=== PATIENT | female | born 1985 | race Caucasian/White ===

== ENCOUNTER 2017-02-21 17:54 | Observation (INO) | payer BC ==
[2017-02-21] MEDS ORDERED: Lactated Ringers 1,000 ML IV ONE (18:09)
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
[2017-02-21] MEDS ORDERED: Lactated Ringers 1,000 ML IV SCH (19:15)
[2017-02-21] MEDS ORDERED: Ondansetron 4 MG/2 ML SDV IV PRN (20:23)
[2017-02-21] MEDS ORDERED: Ketorolac 30 MG/ML SDV IVPUSH PRN (20:23)
[2017-02-21] MEDS ORDERED: Sodium Chloride 0.9% 10 ML Syringe FLUSH PRN (20:38)
[2017-02-21] MEDS: Lactated Ringers 1,000 ML IV SCH (22:15)
[2017-02-22] MEDS: Lactated Ringers 1,000 ML IV SCH (06:21)
--- NOTE | 2017-02-22 07:19 | ER ---
DATE SEEN: 02/21/2017 ADDENDUM: TIME SEEN: 2000 hours. The patient came in earlier after almost passing out at home with vaginal bleeding and was given 2 L of fluid and an ultrasound was ordered. I have discussed this with the exhibit technician who notes that the cervix seems opened with a large clot and products of conception still to pass. PHYSICAL EXAMINATION: GENERAL: She is not in distress. VITAL SIGNS: She has normal vital signs. Mildly pale. ABDOMEN: Soft. VAGINAL: Revealed active vaginal bleeding. IMPRESSION: Incomplete . PLAN: I had planned to discharge the patient home; however, she is still uncomfortable and still bleeding actively. I elected to keep her overnight for observation and blood count in the morning. /[id number] CHANTAL/ALIX
--- NOTE | 2017-02-22 11:19 | US ---
INDICATION: Miscarriage. Question retained products of conception. OB ULTRASOUND FIRST TRIMESTER: Utilizing transabdominal probe, multiple ultrasonic images were obtained. The urinary bladder is almost empty. Detail is somewhat limited. The uterus is anteverted. At the lower uterine segment - at the cervix, there is heterogeneous echogenic to isoechoic mass with fluid present. Findings suggest large blood clots and hemorrhage in this patient, who has been bleeding. Within the uterus, the endometrial cavity appears prominent, within the fundal uterus and area of the body, a definite retained product was not identified. However, would suggest a repeat examination in 2 or 6 weeks to confirm complete expelling of the miscarriage. The cervix appeared open at the end of the examination and the echogenic mass, which initially measured 8.2 x 7.3 x 7.9 cm appears to break up somewhat. No adnexal mass lesions or free fluid collections were demonstrated. The maternal ovaries were not demonstrated. IMPRESSION: Large heterogeneous mass in the lower uterine segment - cervix area. It does not appear to have blood flow within it, likely representing a blood clot with surrounding hemorrhage. A specific gestational sac is not identified. No heart motion was seen. Follow-up study recommended in 2 or 6 weeks to confirm complete emptying of the lower uterine segment. MTDD
[2017-02-22 14:25] VITALS: BP 100/58
--- NOTE | 2017-02-22 14:35 | US ---
INDICATION: loss follow-up on uterine contents. ULTRASOUND OF PELVIS, NON-OB: Multiple ultrasonic images were obtained 2016 and compared with 02/21/2017, now revealing the uterus to measure 7.4 x 5.5 x 7.6 cm. The echogenic mass and fluid seen in the lower uterine segment and at the cervix on the previous day had been expelled. There is some residual probable blood and clots in the fundus of the uterus now seen. An additional follow-up study in 2 or 6 weeks is recommended to show complete emptying. No adnexal mass lesions or free fluid collections were demonstrated. The left ovary was not well seen, but measured 16 x 30 mm; a probable involuting cyst is present there. The right ovary measured 1.9 x 2.83 cm and is somewhat better visualized and essentially unremarkable. IMPRESSION: 1. Residual clots and blood suggested in the fundus of the uterus post AB. No definite retention of products of conception - follow-up recommended in 2 or 6 weeks for confirmation of complete involution of the endometrium. 2. The large echogenic area of abnormality at the lower uterine segment and cervix has been expelled since the previous days examination. Report faxed to Dr. Karoline Upton, LITHOGRAPHIC PHOTOGRAPHER APPRENTICE at [facility], 2016 at 1435 hours. [facility]
--- NOTE | 2017-02-22 14:48 | PN ---
DATE SEEN: 02/22/2017 SUBJECTIVE: Linh Cee is a 32-year-old, 3, para 2-0-0-2 female, admitted yesterday with complicated bleeding. She had been seen by OB provider at [facility] on February 20, OB visit. No heart tones. Ultrasound revealed demise, 7 weeks gestation, though 12 weeks by dates. Was discharged home for observation. Given ibuprofen. Noted blood type O-positive. Late in the evening on 02/19/2017 at 2300 hours, she had acute onset of severe vaginal bleeding, cramps and discomfort, and near syncopal symptoms. Family attended to her needs. Was better early in the morning of 02/21/2017, symptoms reappeared with severe pain, cramps, and discomfort. Was seen at [facility], a diagnostic ultrasound revealed an "empty uterus", large heterogeneous clot at an open cervical os. She passed the clots. Has had limited bleeding since that time. Seen today. LABORATORY STUDIES OF SIGNIFICANCE: Hemoglobin 13; on 02/20/2017, 11.2; and today 9.2. Electrolytes were satisfactory. OBJECTIVE: CHEST: Clear. HEART: Regular. ABDOMEN: No palpable uterine fundus. PELVIC: Deferred at this time. ASSESSMENT: demise, 12 weeks by date, 7 weeks by gestational products, strong suspicion for probably complete resolution. PLAN: Ultrasound will be performed, complementary care and well being, fluids and hydration, observed through the course of the morning. Discharge likely later today. /[id number] JONNY/LAIX
--- NOTE | 2017-02-25 08:36 | DISCH ---
DISCHARGE DATE: 02/22/2017 HISTORY OF PRESENT ILLNESS: Linh Cee is a 32-year-old , female, admitted to [facility] with complications related to first-trimester bleeding. She will be a 3, para 2, AB1 female. She was seen by Dr. Upton, [facility] [employer] W[employer] C[employer]TER on 02/20/2017 for a routine obstetrical visit. Absent heart tones at 12 weeks led to an ultrasound, showed a seven to eight-week demise. Discharged with appropriate instructions. HOSPITAL COURSE: That evening, on 02/20/2017, had an exponential episode of bleeding for about an hour's duration attended to by family, better on the morning of 02/21/2017, increasing cramps and discomfort. Eventually an evaluation at [facility] and admission to the hospital. She was admitted by Dr. Villagomez. Ultrasound revealed a large heterogeneous mass in the lower uterine segment consistent with blood clot, and little in the way of other content findings. After passing two clots last evening, she has had a good morning until today. She has been up and ambulatory. Hemoglobin at [facility] in [place] two days ago was 13 by report; on 02/21/2017 was 11.2; and on 02/22/2017 this morning was 9.2 and hematocrit was 26.1. A little lightheaded and a little dizzy. Repeat ultrasound revealed a fairly normal content-absent uterine cavity. She is otherwise doing well. It should be noted that she is Rh positive. We will discharge her home with fluids and hydration, observation of low blood pressure related symptoms, two vitamins daily, and will have a followup appointment with her provider in one week's time. SURGICAL PROCEDURES: None. CONSULTATIONS: None. /[id number] JONYN/ALIX CC: Karoline Upton MD, [employer] at [facility]
== END 2017-02-22 16:00 | disposition home or self-care (01) ==
LOC: FB.ED 17:54 → FB.MS 20:23
PROVIDERS: ADMIT Family Medicine; ATTEND Family Medicine
DX: O36.4XX1 Maternal care for intrauterine death, fetus 1 (principal); O03.4 Incomplete spontaneous abortion without complication; Z79.899 Other long term (current) drug therapy
CPT/HCPCS: 36415; 76801; 76856; 80048; 85025; 85027; 86850; 86900; 86901; 96360; 96361; 99285; G0378; J7050; J7120

== ENCOUNTER 2021-12-24 03:40 | Emergency (ER) | payer BC ==
[2021-12-24] MEDS ORDERED: Ondansetron 4 MG/2 ML SDV IVPUSH ONE (03:58)
[2021-12-24] MEDS ORDERED: Ketorolac 30 MG/ML SDV IVPUSH ONE (03:58)
[2021-12-24 04:28] VITALS: PULSE 75
[2021-12-24] MEDS ORDERED: Iopamidol 755 Mg/ML 75 ML Bottle IV ONE (04:30)
[2021-12-24 04:40] LABS: ESTIMATED GFR 86 mL/min (>60)
[2021-12-24] MEDS ORDERED: Sodium Chloride 0.9% 1,000 ML IV ONE (06:06)
[2021-12-24] MEDS ORDERED: metroNIDAZOLE/Normal Saline 500 MG in Premix Bag 1 BAG IV ONE (06:53)
[2021-12-24] MEDS ORDERED: Ciprofloxacin in D5W 400 MG in Premix Bag 1 BAG IV ONE ×2 (06:53)
[2021-12-24 10:04] VITALS: BP 114/69
[2021-12-24] MEDS ORDERED: Ondansetron 4 MG/2 ML SDV ONE (12:47)
== END 2021-12-24 10:00 | disposition home or self-care (01) ==
LOC: FB.ED 03:40
DX: K57.32 Diverticulitis of large intestine without perforation or abscess without bleeding (principal)
CPT/HCPCS: 74177; 80053; 81001; 81025; 83690; 85025; 96361; 96365; 96367; 96375; 99282; 99284-25; J0744; J1885; J2405; J3490; J7030; Q9967

== ENCOUNTER 2022-09-07 01:35 | Emergency (ER) | payer BC ==
[2022-09-07 02:24] VITALS: BP 110/70; PULSE 95
[2022-09-07] MEDS ORDERED: Sodium Chloride 0.9% 1,000 ML IV ONE (02:27)
[2022-09-07] MEDS ORDERED: Ciprofloxacin in D5W 400 MG in Premix Bag 1 BAG IV ONE ×2 (02:27)
[2022-09-07] MEDS ORDERED: metroNIDAZOLE/Normal Saline 500 MG in Premix Bag 1 BAG IV ONE (02:28)
[2022-09-07] MEDS ORDERED: Morphine 4 MG/ML VIAL IVPUSH ONE (02:28)
[2022-09-07] MEDS ORDERED: Ondansetron 4 MG/2 ML SDV IVPUSH ONE (02:28)
[2022-09-07 02:38] LABS: ESTIMATED GFR 85 mL/min (>60)
[2022-09-07] MEDS ORDERED: Sodium Chloride 0.9% 10 ML Syringe FLUSH PRN (02:57)
[2022-09-07] MEDS ORDERED: Iopamidol 755 Mg/ML 100 ML Bottle IV ONE (03:37)
== END 2022-09-07 05:27 | disposition home or self-care (01) ==
LOC: FB.ED 01:35
DX: K57.32 Diverticulitis of large intestine without perforation or abscess without bleeding (principal); Z86.16 Personal history of COVID-19
CPT/HCPCS: 36415; 74177; 80053; 81001; 85025; 86140; 96365; 96367; 96375; 99284; J0744; J2270; J2405; J3490; J7030; Q9967; 99283

== ENCOUNTER 2023-09-05 11:26 | Observation (INO) | payer BC ==
[2023-09-05 12:51] LABS: HEMATOCRIT 40.5 % (34.2-48.2); HEMOGLOBIN 14.1 g/dL (11.4-15.5); MEAN CORPUSCULAR HEMOGLOBIN 31.3 pg (23.9-33.9); MEAN CORPUSCULAR HGB CONC 34.8 g/dL (31.9-34.8); RED BLOOD CELL COUNT 4.5 x10(6)uL (3.60-5.20); RED CELL DISTRIBUTION WIDTH 13.3 % (12.3-16.5); WHITE BLOOD CELL COUNT,WBC 10.1 x10-3/uL (3.0-10.3)
[2023-09-05 12:57] LABS: BLOOD UREA NITROGEN,BUN 8 mg/dL (7-18); BUN/CREATININE RATIO 8.9 (9-20); CALCIUM 9.2 mg/dL (8.6-10.2); CARBON DIOXIDE,CO2 29 mmol/L (21-32); CHLORIDE,CL 102 mmol/L (100-110); CREATININE 0.9 mg/dL (0.55-1.02); ESTIMATED GFR 84 mL/min (>60); GLUCOSE RANDOM 93 mg/dL (80-116); POTASSIUM,K 3.7 mmol/L (3.5-5.3); SODIUM,NA 141 mmol/L (135-145)
[2023-09-05 13:03] LABS: ALANINE AMINOTRANSFERASE,ALT 20 U/L (12-36); ALBUMIN 3.9 g/dL (3.5-5.2); ALKALINE PHOSPHATASE 54 IU/L (56-112); ASPARTATE AMNIOTRANSFERASE,AST 18 IU/L (5-25); BILIRUBIN TOTAL 0.6 mg/dL (0.1-1.3); PROTEIN TOTAL,TP 7.9 g/dL (6.0-8.0)
[2023-09-05] MEDS: Sodium Chloride 0.9% 1,000 ML IV SCH (13:15)
[2023-09-05] MEDS: Morphine 2 MG/ML SYRINGE IVPUSH PRN (13:20)
[2023-09-05] MEDS: Ondansetron 4 MG/2 ML SDV IV PRN (13:20)
[2023-09-05] MEDS: Piperacillin/Tazobactam 4.5 GM in Sodium Chloride 0.9% 100 ML IV SCH ×2 (13:21→20:36)
[2023-09-05] MEDS ORDERED: Morphine 2 MG/ML SYRINGE IVPUSH PRN (14:43)
[2023-09-05] MEDS: Ketorolac 30 MG/ML SDV IVPUSH PRN (20:47)
[2023-09-06 06:47] LABS: HEMATOCRIT 32.9 % (34.2-48.2); HEMOGLOBIN 11.3 g/dL (11.4-15.5); MEAN CORPUSCULAR HEMOGLOBIN 31.1 pg (23.9-33.9); MEAN CORPUSCULAR HGB CONC 34.4 g/dL (31.9-34.8); MEAN CORPUSCULAR VOLUME 90.2 fL (76.7-100.5); RED BLOOD CELL COUNT 3.65 x10(6)uL (3.60-5.20); RED CELL DISTRIBUTION WIDTH 13.3 % (12.3-16.5); WHITE BLOOD CELL COUNT,WBC 5.9 x10-3/uL (3.0-10.3)
[2023-09-06 07:00] LABS: A/G RATIO 0.8; ALANINE AMINOTRANSFERASE,ALT 12 U/L (12-36); ALBUMIN 2.7 g/dL (3.5-5.2); ALKALINE PHOSPHATASE 38 IU/L (56-112); ASPARTATE AMNIOTRANSFERASE,AST 7 IU/L (5-25); BILIRUBIN TOTAL 0.6 mg/dL (0.1-1.3); BLOOD UREA NITROGEN,BUN 10 mg/dL (7-18); BUN/CREATININE RATIO 11.1 (9-20); CALCIUM 7.8 mg/dL (8.6-10.2); CARBON DIOXIDE,CO2 25 mmol/L (21-32); CHLORIDE,CL 108 mmol/L (100-110); CREATININE 0.9 mg/dL (0.55-1.02); EST CRCL DRUG DOSING (CG) 86.33 mL/min; ESTIMATED GFR 84 mL/min (>60); GLUCOSE RANDOM 85 mg/dL (80-116); POTASSIUM,K 3.7 mmol/L (3.5-5.3); SODIUM,NA 142 mmol/L (135-145)
[2023-09-06] MEDS: UPADACITINIB 45 MG PO SCH (14:49)
[2023-09-06] MEDS: Enoxaparin 40 MG/0.4 ML Syringe SUBCUT SCH (21:27)
[2023-09-07 06:36] LABS: BASOPHILS PERCENT AUTO 0.5 % (0.2-1.5); EOSINOPHILS ABSOLUTE AUTO 0.1 x10-3/uL (0.0-0.8); EOSINOPHILS PERCENT AUTO 3.3 % (0.6-8.1); HEMATOCRIT 33.3 % (34.2-48.2); HEMOGLOBIN 11.4 g/dL (11.4-15.5); LYMPHOCYTES ABSOLUTE AUTO 1.5 x10-3/uL (1.0-4.4); LYMPHOCYTES PERCENT AUTO 46.9 % (18.4-52.1); MEAN CORPUSCULAR HEMOGLOBIN 30.7 pg (23.9-33.9); MEAN CORPUSCULAR HGB CONC 34.2 g/dL (31.9-34.8); MEAN PLATELET VOLUME 8.2 fL (7.1-12.4); MONOCYTES ABSOLUTE AUTO 0.3 x10-3/uL (0.3-1.0); MONOCYTES PERCENT AUTO 10.1 % (4.4-15.7); NEUTROPHILS ABSOLUTE AUTO 1.3 x10-3/uL (1.5-6.3); NEUTROPHILS PERCENT AUTO 39.2 % (30.8-76.2); PLATELET COUNT,PLT 160 x10(3)uL (151-488); RED CELL DISTRIBUTION WIDTH 13.4 % (12.3-16.5); WHITE BLOOD CELL COUNT,WBC 3.3 x10-3/uL (3.0-10.3)
[2023-09-07 06:44] LABS: BLOOD UREA NITROGEN,BUN 7 mg/dL (7-18); BUN/CREATININE RATIO 8.8 (9-20); CALCIUM 8.3 mg/dL (8.6-10.2); CARBON DIOXIDE,CO2 26 mmol/L (21-32); CHLORIDE,CL 107 mmol/L (100-110); CREATININE 0.8 mg/dL (0.55-1.02); EST CRCL DRUG DOSING (CG) 97.13 mL/min; ESTIMATED GFR 97 mL/min (>60); GLUCOSE RANDOM 81 mg/dL (80-116); POTASSIUM,K 3.8 mmol/L (3.5-5.3); SODIUM,NA 142 mmol/L (135-145)
[2023-09-07] MEDS: Sodium Chloride 0.9% 10 ML Syringe FLUSH PRN (09:04)
[2023-09-07 14:38] VITALS: BP 108/68; PULSE 62
== END 2023-09-07 14:00 | disposition home or self-care (01) ==
LOC: FB.MS 11:26
PROVIDERS: ADMIT Family Medicine; ATTEND Internal Medicine
DX: K57.92 Diverticulitis of intestine, part unspecified, without perforation or abscess without bleeding (principal); K50.90 Crohn's disease, unspecified, without complications; Z98.890 Other specified postprocedural states; Z79.899 Other long term (current) drug therapy
CPT/HCPCS: 36415; 74176; 80048; 80053; 85025; 85027; J1650; J1885; J2270; J2405; J2543; J3490; J7030; 96361; 96365; 96366; 96372; 96375; 96376; 99222; 99232; 99238; G0378

== ENCOUNTER 2024-10-24 17:27 | Observation (INO) | payer BC ==
[2024-10-24 17:44] LABS: BASOPHILS PERCENT AUTO 0.3 % (0.2-1.5); EOSINOPHILS PERCENT AUTO 0.4 % (0.6-8.1); HEMATOCRIT 37.1 % (34.2-48.2); HEMOGLOBIN 13.2 g/dL (11.4-15.5); LYMPHOCYTES ABSOLUTE AUTO 1.3 x10-3/uL (1.0-4.4); LYMPHOCYTES PERCENT AUTO 18.3 % (18.4-52.1); MEAN CORPUSCULAR HEMOGLOBIN 32.3 pg (23.9-33.9); MEAN CORPUSCULAR HGB CONC 35.5 g/dL (31.9-34.8); MEAN CORPUSCULAR VOLUME 90.9 fL (76.7-100.5); MEAN PLATELET VOLUME 7.3 fL (7.1-12.4); MONOCYTES ABSOLUTE AUTO 0.8 x10-3/uL (0.3-1.0); MONOCYTES PERCENT AUTO 11.5 % (4.4-15.7); NEUTROPHILS ABSOLUTE AUTO 4.9 x10-3/uL (1.5-6.3); NEUTROPHILS PERCENT AUTO 69.5 % (30.8-76.2); PLATELET COUNT,PLT 245 x10(3)uL (151-488); RED BLOOD CELL COUNT 4.08 x10(6)uL (3.60-5.20); RED CELL DISTRIBUTION WIDTH 13.4 % (12.3-16.5); WHITE BLOOD CELL COUNT,WBC 7.1 x10-3/uL (3.0-10.3)
[2024-10-24] MEDS ORDERED: Sodium Chloride 0.9% 1,000 ML IV SCH (17:45)
[2024-10-24 17:48] LABS: BLOOD UREA NITROGEN,BUN 15 mg/dL (7-18); BUN/CREATININE RATIO 13.6 (9-20); CALCIUM 9.5 mg/dL (8.6-10.2); CARBON DIOXIDE,CO2 26 mmol/L (21-32); CHLORIDE,CL 105 mmol/L (100-110); CREATININE 1.1 mg/dL (0.55-1.02); ESTIMATED GFR 66 mL/min (>60); GLUCOSE RANDOM 114 mg/dL (80-116); POTASSIUM,K 3.9 mmol/L (3.5-5.3); SODIUM,NA 139 mmol/L (135-145)
[2024-10-24 17:54] LABS: A/G RATIO 1.2; ALANINE AMINOTRANSFERASE,ALT 33 U/L (12-36); ALBUMIN 3.9 g/dL (3.5-5.2); ALKALINE PHOSPHATASE 55 IU/L (56-112); ASPARTATE AMNIOTRANSFERASE,AST 27 IU/L (5-25); BILIRUBIN TOTAL 0.7 mg/dL (0.1-1.3); PROTEIN TOTAL,TP 7.1 g/dL (6.0-8.0)
[2024-10-24 17:56] LABS: INR 1.07 (1.00-1.24); PTT,PARTIAL THROMBOPLSTIN TIME 24.3 SECONDS (24.4-33.2)
[2024-10-24] MEDS ORDERED: Naloxone 0.4 MG/ML SDV IVPUSH PRN (18:06)
[2024-10-24] MEDS: HYDROmorphone 2 MG/ML SDV IVPUSH ONE (18:14)
[2024-10-24] MEDS: Iopamidol 755 Mg/ML 100 ML Bottle IV SCH (18:19)
[2024-10-24] MEDS: Sodium Chloride 0.9% 1,000 ML IV SCH (20:00)
[2024-10-24] MEDS ORDERED: Ondansetron 4 MG Tab.DIS PO PRN (20:32)
[2024-10-24] MEDS: Cyclobenzaprine 10 MG Tab PO PRN (23:23)
[2024-10-24] MEDS: HYDROmorphone 2 MG/ML SDV IVPUSH PRN (23:59)
[2024-10-25] MEDS: Enoxaparin 40 MG/0.4 ML Syringe SUBCUT SCH (01:20)
[2024-10-25] MEDS: fentaNYL 100 MCG/2 ML SDV IVPUSH PRN (02:51)
[2024-10-25] MEDS: Sodium Chloride 0.9% 10 ML Syringe FLUSH PRN (02:55)
[2024-10-25] MEDS: Acetaminophen/HYDROcodone 325-5 MG Tab PO PRN (11:33)
[2024-10-25] MEDS: UPADACITINIB PO SCH (13:45)
[2024-10-26 06:54] LABS: BASOPHILS PERCENT AUTO 0.5 % (0.2-1.5); EOSINOPHILS PERCENT AUTO 1.2 % (0.6-8.1); HEMATOCRIT 32.6 % (34.2-48.2); HEMOGLOBIN 11.4 g/dL (11.4-15.5); LYMPHOCYTES ABSOLUTE AUTO 1.3 x10-3/uL (1.0-4.4); LYMPHOCYTES PERCENT AUTO 39.3 % (18.4-52.1); MEAN CORPUSCULAR HEMOGLOBIN 32.3 pg (23.9-33.9); MEAN CORPUSCULAR VOLUME 92.2 fL (76.7-100.5); MEAN PLATELET VOLUME 7.1 fL (7.1-12.4); MONOCYTES ABSOLUTE AUTO 0.3 x10-3/uL (0.3-1.0); MONOCYTES PERCENT AUTO 9.3 % (4.4-15.7); NEUTROPHILS ABSOLUTE AUTO 1.7 x10-3/uL (1.5-6.3); NEUTROPHILS PERCENT AUTO 49.7 % (30.8-76.2); PLATELET COUNT,PLT 168 x10(3)uL (151-488); RED BLOOD CELL COUNT 3.53 x10(6)uL (3.60-5.20); RED CELL DISTRIBUTION WIDTH 13.5 % (12.3-16.5); WHITE BLOOD CELL COUNT,WBC 3.4 x10-3/uL (3.0-10.3)
[2024-10-26 07:02] LABS: A/G RATIO 1.1; ALANINE AMINOTRANSFERASE,ALT 27 U/L (12-36); ALBUMIN 3.2 g/dL (3.5-5.2); ALKALINE PHOSPHATASE 43 IU/L (56-112); ASPARTATE AMNIOTRANSFERASE,AST 19 IU/L (5-25); BILIRUBIN TOTAL 0.5 mg/dL (0.1-1.3); BLOOD UREA NITROGEN,BUN 10 mg/dL (7-18); BUN/CREATININE RATIO 11.1 (9-20); CALCIUM 8.6 mg/dL (8.6-10.2); CARBON DIOXIDE,CO2 30 mmol/L (21-32); CHLORIDE,CL 105 mmol/L (100-110); CREATININE 0.9 mg/dL (0.55-1.02); ESTIMATED GFR 84 mL/min (>60); GLUCOSE RANDOM 86 mg/dL (80-116); POTASSIUM,K 4.1 mmol/L (3.5-5.3); PROTEIN TOTAL,TP 6.1 g/dL (6.0-8.0); SODIUM,NA 139 mmol/L (135-145)
[2024-10-26] MEDS: Sennosides/Docusate Sodium 50-8.6 MG Tab PO PRN (09:09)
[2024-10-27 06:59] LABS: BASOPHILS PERCENT AUTO 0.3 % (0.2-1.5); HEMATOCRIT 32.7 % (34.2-48.2); HEMOGLOBIN 11.7 g/dL (11.4-15.5); LYMPHOCYTES ABSOLUTE AUTO 1.2 x10-3/uL (1.0-4.4); LYMPHOCYTES PERCENT AUTO 32.5 % (18.4-52.1); MEAN CORPUSCULAR HEMOGLOBIN 32.6 pg (23.9-33.9); MEAN CORPUSCULAR HGB CONC 35.8 g/dL (31.9-34.8); MEAN CORPUSCULAR VOLUME 91.2 fL (76.7-100.5); MONOCYTES ABSOLUTE AUTO 0.3 x10-3/uL (0.3-1.0); MONOCYTES PERCENT AUTO 8.9 % (4.4-15.7); NEUTROPHILS ABSOLUTE AUTO 2.2 x10-3/uL (1.5-6.3); NEUTROPHILS PERCENT AUTO 57.3 % (30.8-76.2); PLATELET COUNT,PLT 176 x10(3)uL (151-488); RED BLOOD CELL COUNT 3.59 x10(6)uL (3.60-5.20); RED CELL DISTRIBUTION WIDTH 13.5 % (12.3-16.5); WHITE BLOOD CELL COUNT,WBC 3.8 x10-3/uL (3.0-10.3)
[2024-10-27 07:06] LABS: BLOOD UREA NITROGEN,BUN 11 mg/dL (7-18); BUN/CREATININE RATIO 12.2 (9-20); CALCIUM 8.8 mg/dL (8.6-10.2); CARBON DIOXIDE,CO2 29 mmol/L (21-32); CHLORIDE,CL 103 mmol/L (100-110); CREATININE 0.9 mg/dL (0.55-1.02); ESTIMATED GFR 84 mL/min (>60); GLUCOSE RANDOM 85 mg/dL (80-116); POTASSIUM,K 3.7 mmol/L (3.5-5.3); SODIUM,NA 138 mmol/L (135-145)
[2024-10-27 14:11] VITALS: BP 108/73; PULSE 90
== END 2024-10-27 14:15 | disposition home or self-care (01) ==
LOC: FB.ED 17:27 → FB.MS 10-25 00:29
PROVIDERS: ADMIT Family Medicine; ATTEND Internal Medicine
DX: S22.070A Wedge compression fracture of T9-T10 vertebra, initial encounter for closed fracture (principal); S22.080A Wedge compression fracture of T11-T12 vertebra, initial encounter for closed fracture; Z79.899 Other long term (current) drug therapy
CPT/HCPCS: 36415; 70450; 71260; 72125; 72128; 72131; 74177; 80048; 80053; 81025; 85025; 85610; 85730; 94150; 97161-GP; 97165-GO; 97530-GP; 97535-GO; 99222; 99232; 99238; 99285; A9270-GY; J1171; J1650; J3010; J7030; Q9967